=== PATIENT | male | born 1955 | race Caucasian/White ===

== ENCOUNTER 2016-09-24 09:31 | Day surgery (SDC) | payer OTHER ==
[~2016-09-24] VITALS: Ht 175.3 cm; Wt 70.4 kg
[2016-09-24] MEDS ORDERED: SIMV10TA PO (10:59)
[2016-09-24] MEDS ORDERED: METF500T3 PO (10:59)
[2016-09-24] MEDS ORDERED: [UNRECOGNIZED DRUG - OTHER] (10:59)
[2016-09-24] MEDS ORDERED: MELO-109 PO (10:59)
[2016-09-24] MEDS ORDERED: LISI10TA2 PO (10:59)
[2016-09-24 11:04] VITALS: Ht 175.3 cm; Wt 70.4 kg
[2016-09-24 11:41] VITALS: BP 143/87; PULSE 81; RESP 20
[2016-09-24] MEDS ORDERED: FENTAnyl 50 MCG/ML VIAL ONE (12:38)
[2016-09-24] MEDS ORDERED: MIDAZOLAM 1 MG/ML 2 ML INJ ONE (12:38)
[2016-09-24 12:40] VITALS: BP 111/68; RESP 20
--- NOTE | 2016-09-24 13:27 | GILP ---
DATE OF PROCEDURE: NAME OF PROCEDURES: Colonoscopy and polypectomy and tattooing. SURGEON: Ligia Suárez MD PREOPERATIVE DIAGNOSIS: Screening colonoscopy. POSTOPERATIVE DIAGNOSES 1. Colonoscopy all the way to the cecum. 2. Flat polyp in the sigmoid colon at 15 cm from the anus was removed using the snare and electroca utery. 3. Tattooing of the polypectomy site was done. 4. Another sigmoid colon polyp at 10 cm from the anus was removed using the snare and electrocauter y. 5. Internal hemorrhoids. INDICATION FOR THE PROCEDURE: Mr. Jhonathan Weber is a 61-year-old male patient who was sche duled for screening colonoscopy. The procedure and possible complications were well explained to the patient. He understood and cons ented to the procedure. DESCRIPTION OF PROCEDURE: Under the influence of fentanyl and Versed, the colonoscope was carefully introduced in the rectum and under direct vision, it was advanced all the way to the cecum. FINDINGS: The patient had a flat polyp in the sigmoid colon at 15 cm from the anus and it was remov ed using the snare and electrocautery in pieces. The area was tattooed with [place]ra ink. The patient was again noted to have another sigmoid polyp at 10 cm from the anus and it was also removed using the snare and electrocautery. The patient was noted to have internal hemorrhoids. He tolerated the procedure very well and there was no complication from the procedure. At the end o f the procedure, he was awake with stable vital signs and he was discharged home to the care of his family. IMPRESSION: Please see postoperative diagnosis. PLAN: 1. Await histopathology report. 2. The timing for the next colonoscopy will be decided after reviewing the histopathology report. Dictated By: LIGIA MILES/CLARIBEL Conf#: [id number] DID#: [id number]
== END 2016-09-24 15:37 | disposition home or self-care (01) ==
LOC: GIL 09:31
PROVIDERS: ATTEND Internal Medicine Gastroenterology
DX: Z12.11 Encounter for screening for malignant neoplasm of colon (principal); D12.5 Benign neoplasm of sigmoid colon; I10 Essential (primary) hypertension; E78.00 Pure hypercholesterolemia, unspecified
CPT/HCPCS: 45381; 45385; 82962; 88305; J2250; J3010; Z7610